=== PATIENT | female | born 1965 | race Caucasian/White ===

== ENCOUNTER → 2017-03-20 | Outpatient (CLI) | payer OTHER | LOC: FIMAGING 11:44 | PROVIDERS: ATTEND Obstetrics & Gynecology | DX: N95.0 Postmenopausal bleeding (principal); R93.8 Abnormal findings on diagnostic imaging of other specified body structures; N83.202 Unspecified ovarian cyst, left side; N83.201 Unspecified ovarian cyst, right side; D25.0 Submucous leiomyoma of uterus ==

== ENCOUNTER → 2017-10-13 | Outpatient (CLI) | payer OTHER | LOC: FIMAGING 15:31 | PROVIDERS: ATTEND Internal Medicine | DX: Z12.31 Encounter for screening mammogram for malignant neoplasm of breast (principal); Z80.3 Family history of malignant neoplasm of breast ==